=== PATIENT | male | born 1990 | race Caucasian/White ===

== ENCOUNTER → 2017-02-10 | Outpatient (REF) ==
[~2017-02-10] MED LIST: CEPHALEXIN500 M1 PO; FLAGYL500 MG PO; NAPROSYN500 MG PO; NO HOME MEDICATIONS; NORCO 325 MG-51 TAB PO; PREDNISONE20 MG PO
[2017-02-10 11:44] LABS: THYROID STIMULATING HORMONE 7.15 uIU/mL (0.465-4.680)
[2017-02-10 12:30] LABS: LITHIUM 0.5 mmol/L (0.6-1.2)
== END ==
LOC: ZLAB.WCH 10:42
PROVIDERS: Psychiatry & Neurology Psychiatry
DX: Z01.89 Encounter for other specified special examinations (principal)

== ENCOUNTER 2018-03-24 20:48 | Emergency (ER) | payer BC ==
[~2018-03-24] VITALS: Ht 180.3 cm; Wt 113.6 kg
[2018-03-24 20:53] VITALS: BP 185/97; PULSE 60; TEMP 97.2
[2018-03-24] MEDS ORDERED: CEPHALEXIN500 M1 PO (21:49)
[2018-03-24] MEDS ORDERED: NORCO 325 MG-51 TAB PO (21:49)
== END 2018-03-24 21:56 | disposition home or self-care (01) ==
LOC: COL.ER 20:48
DX: K04.7 Periapical abscess without sinus (principal); F17.210 Nicotine dependence, cigarettes, uncomplicated; Z98.890 Other specified postprocedural states; Z90.89 Acquired absence of other organs; Z88.0 Allergy status to penicillin

== ENCOUNTER 2019-11-08 01:21 | Emergency (ER) | payer SELFPAY ==
[~2019-11-08] VITALS: Ht 180.3 cm; Wt 100.0 kg
[2019-11-08 01:54] LABS: BASO # 0.1 (0.0-0.2); BASO % 0.6 % (0.0-2.0); EOS # 0.2 (0.0-0.7); EOS % 2.6 % (0-4.0); GRAN # 5.2 (1.4-6.5); GRAN % 58.7 % (42.2-75.2); HEMATOCRIT 45.5 % (42.0-52.0); HEMOGLOBIN 15.7 g/dl (13.5-18.0); LYMPH # 2.6 (1.2-3.4); LYMPH % 29.6 % (20.0-51.0); MEAN CELL VOLUME 93 fl (80.0-100.0); MEAN CORPUSCULAR HEMOGLOBIN 32 pg (27.0-31.0); MEAN CORPUSCULAR HGB CONC 35 g/dl (33.0-37.0); MEAN PLATELET VOLUME 10.3 fl (7.4-10.4); MONO # 0.7 (0.1-0.6); MONO % 8.2 % (1.7-9.3); PLATELET COUNT 258 K/mm3 (130-400); RED BLOOD COUNT 4.92 M/mm3 (4.20-5.60); REDCELL DISTRIBUTION WIDTH-CV 13.2 % (11.5-14.5)
[2019-11-08 02:00] LABS: ALANINE AMINOTRANSFERASE 9 U/L (21-72); ALBUMIN 4.4 gm/dL (3.5-5.0); ALKALINE PHOSPHATASE 57 U/L (50-136); ANION GAP 9 mmol/L (7-16); AST,SGOT 19 U/L (15-37); BILIRUBIN,TOTAL 0.5 mg/dL (0.0-1.0); BLOOD UREA NITROGEN 14 mg/dL (9-20); C-REACTIVE PROTEIN < 0.5 mg/dL (0.0-0.9); CALCIUM 9.5 mg/dL (8.4-10.2); CARBON DIOXIDE 24 mmol/L (22-30); CHLORIDE 107 mmol/L (98-107); CREATININE, serum 0.88 (0.66-1.25); GLUCOSE 97 mg/dL (74-106); LIPASE 105 U/L (23-300); POTASSIUM 4.1 mmol/L (3.4-5.0); SODIUM 140 mmol/L (137-145); TOTAL PROTEIN 7.7 gm/dL (6.4-8.2)
[2019-11-08 02:53] LABS: COLLECTION METHOD CLEAN CATCH
[2019-11-08 02:58] LABS: MUCOUS Present /lpf; PH 5 (5-8); SQUAMOUS EPITHELIAL 0-2 /hpf; URINE APPEARANCE Clear; URINE BACTERIA None Seen /hpf; URINE BILIRUBIN Negative (NEGATIVE); URINE BLOOD Negative (NEGATIVE); URINE COLOR Yellow; URINE GLUCOSE Negative (NEGATIVE); URINE KETONE Negative (NEGATIVE); URINE LEUKOCYTE ESTERASE Negative (NEGATIVE); URINE NITRATE Negative (NEGATIVE); URINE PROTEIN(semi-quant) Negative (NEGATIVE); URINE RBC 0-2 /hpf
[2019-11-08] MEDS ORDERED: PRILOTC PO (04:03)
[2019-11-08 04:21] VITALS: BP 122/68; PULSE 76; TEMP 97.6
== END 2019-11-08 04:21 | disposition home or self-care (01) ==
LOC: COL.ER 01:21
PROVIDERS: Emergency Medicine
DX: R10.9 Unspecified abdominal pain (principal); F32.9 Major depressive disorder, single episode, unspecified; F17.210 Nicotine dependence, cigarettes, uncomplicated; Z88.0 Allergy status to penicillin; Z98.890 Other specified postprocedural states
CPT/HCPCS: J1885; J7030; Q9967

== ENCOUNTER 2020-01-08 16:47 | Emergency (ER) | payer SELFPAY ==
[~2020-01-08] VITALS: Ht 180.3 cm; Wt 90.9 kg
[~2020-01-08 16:47] MED LIST changes: +PRILOTC PO
[2020-01-08 17:53] LABS: BASO % 0.6 % (0.0-2.0); EOS # 0.1 (0.0-0.7); EOS % 1.5 % (0-4.0); GRAN # 2.7 (1.4-6.5); GRAN % 51.3 % (42.2-75.2); HEMATOCRIT 42.7 % (42.0-52.0); LYMPH # 1.5 (1.2-3.4); LYMPH % 28.4 % (20.0-51.0); MEAN CELL VOLUME 91 fl (80.0-100.0); MEAN CORPUSCULAR HEMOGLOBIN 32 pg (27.0-31.0); MEAN CORPUSCULAR HGB CONC 35 g/dl (33.0-37.0); MEAN PLATELET VOLUME 10.9 fl (7.4-10.4); MONO # 0.9 (0.1-0.6); PLATELET COUNT 194 K/mm3 (130-400); RED BLOOD COUNT 4.71 M/mm3 (4.20-5.60); REDCELL DISTRIBUTION WIDTH-CV 12.8 % (11.5-14.5)
[2020-01-08] MEDS ORDERED: PHENERGAN 25 TA25 MG PO (18:03)
[2020-01-08 18:09] LABS: ALBUMIN 4.1 gm/dL (3.5-5.0); BILIRUBIN,TOTAL 0.5 mg/dL (0.0-1.0); CALCIUM 9.1 mg/dL (8.4-10.2); CREATININE, serum 0.89 (0.66-1.25); POTASSIUM 3.9 mmol/L (3.4-5.0); TOTAL PROTEIN 7.3 gm/dL (6.4-8.2)
[2020-01-08 18:56] VITALS: BP 132/72; PULSE 56; TEMP 98
== END 2020-01-08 18:55 | disposition home or self-care (01) ==
LOC: COL.ER 16:47
PROVIDERS: Emergency Medicine
DX: F07.81 Postconcussional syndrome (principal); W01.0XXA Fall on same level from slipping, tripping and stumbling without subsequent striking against object, initial encounter; Y92.810 Car as the place of occurrence of the external cause
CPT/HCPCS: J1885; J2550; J7030

== ENCOUNTER 2020-10-23 19:04 | Emergency (ER) | payer SELFPAY ==
[~2020-10-23] VITALS: Ht 180.3 cm; Wt 81.8 kg
[~2020-10-23 19:04] MED LIST changes: +PHENERGAN 25 TA25 MG PO
[2020-10-23 19:24] VITALS: TEMP 98.2
[2020-10-24 00:45] VITALS: BP 140/86; PULSE 76
== END 2020-10-24 00:45 | disposition home or self-care (01) ==
LOC: COL.ER 19:04
DX: S03.03XA Dislocation of jaw, bilateral, initial encounter (principal); F17.210 Nicotine dependence, cigarettes, uncomplicated; Z88.0 Allergy status to penicillin; X58.XXXA Exposure to other specified factors, initial encounter
CPT/HCPCS: J1885; J2060; J2270

== ENCOUNTER 2021-02-08 09:49 | Emergency (ER) | payer OTHER ==
[~2021-02-08] VITALS: Ht 180.3 cm; Wt 75.0 kg
[2021-02-08 10:39] LABS: BASO # 0.1 (0.0-0.2); BASO % 0.8 % (0.0-2.0); EOS # 0.6 (0.0-0.7); EOS % 7.4 % (0-4.0); GRAN # 4.5 (1.4-6.5); GRAN % 56.6 % (42.2-75.2); HEMATOCRIT 42.6 % (42.0-52.0); LYMPH # 2.1 (1.2-3.4); MEAN CELL VOLUME 97 fl (80.0-100.0); MEAN CORPUSCULAR HEMOGLOBIN 32 pg (27.0-31.0); MEAN CORPUSCULAR HGB CONC 33 g/dl (33.0-37.0); MEAN PLATELET VOLUME 9.7 fl (7.4-10.4); MONO # 0.7 (0.1-0.6); MONO % 8.6 % (1.7-9.3); PLATELET COUNT 275 K/mm3 (130-400); RED BLOOD COUNT 4.41 M/mm3 (4.20-5.60)
[2021-02-08 10:51] LABS: ALANINE AMINOTRANSFERASE 24 U/L (4-49); ALBUMIN 3.9 gm/dL (3.5-5.0); ALKALINE PHOSPHATASE 63 U/L (50-136); ANION GAP 6 mmol/L (7-16); AST,SGOT 31 U/L (15-37); BILIRUBIN,TOTAL 0.1 mg/dL (0.0-1.0); BLOOD UREA NITROGEN 22 mg/dL (9-20); CARBON DIOXIDE 27 mmol/L (22-30); CHLORIDE 103 mmol/L (98-107); CREATININE, serum 0.85 (0.66-1.25); GLUCOSE 96 mg/dL (74-106); POTASSIUM 4.8 mmol/L (3.4-5.0); SODIUM 137 mmol/L (137-145); TOTAL PROTEIN 7.6 gm/dL (6.4-8.2)
[2021-02-08 10:52] LABS: ACETAMINOPHEN < 10 ug/mL (10-30); ALCOHOL(ethanol),MEDICAL < 10 mg/dL; SALICYLATE < 1.0 mg/dL
[2021-02-08 11:55] LABS: COLLECTION METHOD CLEAN CATCH
[2021-02-08 12:02] LABS: PH 6 (5-8); SQUAMOUS EPITHELIAL None Seen /hpf; URINE APPEARANCE Hazy; URINE BACTERIA None Seen /hpf; URINE BILIRUBIN Negative (NEGATIVE); URINE BLOOD Negative (NEGATIVE); URINE COLOR Straw; URINE GLUCOSE Negative (NEGATIVE); URINE KETONE Negative (NEGATIVE); URINE LEUKOCYTE ESTERASE 1+ (NEGATIVE); URINE NITRATE Negative (NEGATIVE); URINE PROTEIN(semi-quant) Negative (NEGATIVE); URINE RBC 0-2 /hpf; URINE UROBILINOGEN Negative (NEGATIVE)
[2021-02-08 12:16] LABS: TRICYCLIC ANTIDEPRESS URINE NEGATIVE
[2021-02-12 09:59] VITALS: TEMP 97.6
[2021-02-12 16:22] VITALS: BP 150/78; PULSE 87
== END 2021-02-12 16:24 ==
LOC: COL.ER 09:49
PROVIDERS: Physician Assistant
DX: S60.512A Abrasion of left hand, initial encounter (principal); R45.851 Suicidal ideations; K03.81 Cracked tooth; F17.210 Nicotine dependence, cigarettes, uncomplicated; Z20.822 Contact with and (suspected) exposure to COVID-19; Z88.0 Allergy status to penicillin; X83.8XXA Intentional self-harm by other specified means, initial encounter; Y92.59 Other trade areas as the place of occurrence of the external cause
CPT/HCPCS: G0463; J1200; J1630; J2060; J2250

== ENCOUNTER 2021-03-23 16:06 | Emergency (ER) | payer MEDICAID ==
[~2021-03-23] VITALS: Ht 180.3 cm; Wt 88.6 kg
[2021-03-23] MEDS ORDERED: SEROQUEL 200MG200 MG PO (16:19)
[2021-03-23 16:57] LABS: BASO # 0.1 (0.0-0.2); BASO % 0.9 % (0.0-2.0); EOS # 0.5 (0.0-0.7); GRAN # 3.2 (1.4-6.5); GRAN % 47.2 % (42.2-75.2); HEMATOCRIT 37.9 % (42.0-52.0); HEMOGLOBIN 12.7 g/dl (13.5-18.0); LYMPH # 2.3 (1.2-3.4); LYMPH % 33.9 % (20.0-51.0); MEAN CELL VOLUME 94 fl (80.0-100.0); MEAN CORPUSCULAR HEMOGLOBIN 31 pg (27.0-31.0); MEAN CORPUSCULAR HGB CONC 34 g/dl (33.0-37.0); MEAN PLATELET VOLUME 9.6 fl (7.4-10.4); MONO # 0.7 (0.1-0.6); MONO % 9.9 % (1.7-9.3); PLATELET COUNT 234 K/mm3 (130-400); RED BLOOD COUNT 4.04 M/mm3 (4.20-5.60); REDCELL DISTRIBUTION WIDTH-CV 14.6 % (11.5-14.5)
[2021-03-23 17:06] LABS: ALBUMIN 3.8 gm/dL (3.5-5.0); BILIRUBIN,TOTAL 0.2 mg/dL (0.0-1.0); CREATININE, serum 0.8 (0.66-1.25); TOTAL PROTEIN 7.3 gm/dL (6.4-8.2)
[2021-03-23 18:52] LABS: COLLECTION METHOD CLEAN CATCH
[2021-03-23 19:13] LABS: MUCOUS Present /lpf; PH 5 (5-8); SQUAMOUS EPITHELIAL 0-2 /hpf; URINE APPEARANCE Clear; URINE BACTERIA None Seen /hpf; URINE BILIRUBIN Negative (NEGATIVE); URINE BLOOD Negative (NEGATIVE); URINE COLOR Yellow; URINE GLUCOSE Negative (NEGATIVE); URINE KETONE Negative (NEGATIVE); URINE LEUKOCYTE ESTERASE Trace (NEGATIVE); URINE NITRATE Negative (NEGATIVE); URINE PROTEIN(semi-quant) Negative (NEGATIVE); URINE RBC 0-2 /hpf; URINE UROBILINOGEN Negative (NEGATIVE)
[2021-03-23] MEDS ORDERED: BACTRIM DS 8001 TAB PO (21:09)
[2021-03-23 21:19] VITALS: BP 123/66; PULSE 89; TEMP 98.3
== END 2021-03-23 21:19 | disposition home or self-care (01) ==
LOC: COL.ER 16:06
PROVIDERS: Emergency Medicine
DX: T67.4XXA Heat exhaustion due to salt depletion, initial encounter (principal); Z88.0 Allergy status to penicillin; X30.XXXA Exposure to excessive natural heat, initial encounter
CPT/HCPCS: J7030

== ENCOUNTER 2021-04-06 21:07 | Emergency (ER) | payer MEDICAID ==
[~2021-04-06] VITALS: Ht 180.3 cm; Wt 95.5 kg
[~2021-04-06 21:07] MED LIST changes: +BACTRIM DS 8001 TAB PO; +SEROQUEL 200MG200 MG PO
[2021-04-06] MEDS ORDERED: NORCO 325 MG-51 TAB PO (22:12)
[2021-04-06 22:39] VITALS: BP 127/84; PULSE 83; TEMP 98.7
== END 2021-04-06 21:13 | disposition home or self-care (01) ==
LOC: COL.ER 21:07
DX: S83.005A Unspecified dislocation of left patella, initial encounter (principal); Z88.0 Allergy status to penicillin; X58.XXXA Exposure to other specified factors, initial encounter; Y93.72 Activity, wrestling
CPT/HCPCS: J2060; J3010

== ENCOUNTER 2021-05-07 10:30 | Outpatient (RCR) | payer MEDICAID | END 2021-05-08 10:43 | disposition home or self-care (01) | LOC: MKS.ESL.PT 10:30 | DX: S83.005A Unspecified dislocation of left patella, initial encounter (principal) ==

== ENCOUNTER 2021-07-22 17:32 | Emergency (ER) | payer MEDICAID ==
[~2021-07-22] VITALS: Ht 180.3 cm; Wt 104.5 kg
[2021-07-22 18:06] VITALS: TEMP 98.3
[2021-07-22] MEDS ORDERED: CEPHALEXIN500 M1 PO (20:08)
[2021-07-22] MEDS ORDERED: ULTRAM 50MG TAB50 MG PO (20:08)
[2021-07-22 20:35] VITALS: BP 146/90; PULSE 75
== END 2021-07-22 20:35 | disposition home or self-care (01) ==
LOC: COL.ER 17:32
DX: K02.9 Dental caries, unspecified (principal); F31.9 Bipolar disorder, unspecified; Z88.0 Allergy status to penicillin; Z79.899 Other long term (current) drug therapy

== ENCOUNTER 2021-07-31 10:30 | Outpatient (RCR) | payer MEDICAID ==
[~2021-07-31 10:30] MED LIST changes: +ULTRAM 50MG TAB50 MG PO
== END 2021-08-13 ==
LOC: MKS.ESL.PT
DX: Z98.890 Other specified postprocedural states (principal)

== ENCOUNTER 2022-02-03 09:11 | Emergency (ER) | payer SELFPAY ==
[~2022-02-03] VITALS: Ht 180.3 cm; Wt 100.0 kg
[2022-02-03 09:26] VITALS: BP 136/82; TEMP 98.3
[2022-02-03] MEDS ORDERED: LITHIUM 30300 MG/CAP PO (09:29)
[2022-02-03] MEDS ORDERED: LATUDA40 MG PO (09:29)
[2022-02-03 11:10] VITALS: PULSE 71
== END 2022-02-03 11:10 | disposition home or self-care (01) ==
LOC: COL.ER 09:11
DX: S29.011A Strain of muscle and tendon of front wall of thorax, initial encounter (principal); F17.200 Nicotine dependence, unspecified, uncomplicated; X58.XXXA Exposure to other specified factors, initial encounter

== ENCOUNTER 2022-04-23 03:34 | Inpatient (IN) | payer SELFPAY ==
[~2022-04-23] VITALS: Ht 180.3 cm; Wt 81.8 kg
[~2022-04-23 03:34] MED LIST changes: +LATUDA40 MG PO; +LITHIUM 30300 MG/CAP PO
[2022-04-23 04:27] LABS: BASO # 0.1 K/mm3 (0.0-0.2); BASO % 0.3 % (0.0-2.0); EOS # 0.1 K/mm3 (0.0-0.7); EOS % 0.8 % (0.0-4.0); GRAN # 14.8 K/mm3 (1.4-6.5); GRAN % 83.5 % (42.2-75.2); HEMATOCRIT 40.5 % (42.0-52.0); HEMOGLOBIN 13.6 g/dl (13.5-18.0); LYMPH # 1.4 K/mm3 (1.2-3.4); LYMPH % 8.1 % (20.0-51.0); MEAN CELL VOLUME 97 fl (80.0-100.0); MEAN CORPUSCULAR HEMOGLOBIN 33 pg (27-31); MEAN CORPUSCULAR HGB CONC 34 g/dl (33.0-37.0); MEAN PLATELET VOLUME 10.8 fl (7.4-10.4); MONO # 1.2 K/mm3 (0.1-0.6); MONO % 6.8 % (1.7-9.3); PLATELET COUNT 230 K/mm3 (130-400); RED BLOOD COUNT 4.19 M/mm3 (4.20-5.60); REDCELL DISTRIBUTION WIDTH-CV 13.5 % (11.5-14.5)
[2022-04-23 04:47] LABS: ALBUMIN 3.5 gm/dL (3.5-5.0); BILIRUBIN,TOTAL 0.6 mg/dL (0.2-1.2); C-REACTIVE PROTEIN 6.63 mg/dL (0.00-0.50); CREATININE, serum 0.88 mg/dL (0.72-1.25); POTASSIUM 4.1 mmol/L (3.5-4.5); TOTAL PROTEIN 7.2 gm/dL (6.2-8.1)
[2022-04-23 05:09] LABS: COLLECTION METHOD CLEAN CATCH
[2022-04-23 05:17] LABS: PH 7 (5-8); SQUAMOUS EPITHELIAL 0-2 /hpf (0-10); URINE APPEARANCE Clear (CLEAR/HAZY); URINE BACTERIA None Seen /hpf (NONE SEEN); URINE BILIRUBIN Negative (NEGATIVE); URINE BLOOD 1+ (NEGATIVE); URINE COLOR Straw (YELLOW); URINE GLUCOSE Negative (NEGATIVE); URINE KETONE Negative (NEGATIVE); URINE LEUKOCYTE ESTERASE Negative (NEGATIVE); URINE NITRATE Negative (NEGATIVE); URINE PROTEIN(semi-quant) Negative (NEGATIVE); URINE RBC 0-2 /hpf (0-2); URINE UROBILINOGEN Negative (NEGATIVE)
--- NOTE | 2022-04-23 11:22 | NUR ---
Fang: No mu-ism preference Situation: Car Repossessor stopped by room on rounds Background: PT seems content Assessment: PT was pretty quiet but appreciated the visit Recommendation: Car Repossessor will follow up as needed
[2022-04-23 12:01] VITALS: BP 134/72; PULSE 93; TEMP 99.9
--- NOTE | 2022-04-23 14:43 | NUR ---
Transportation Aide met with patient and patient's father, Ken (ph#[phone]) to discuss discharge planning. Patient lives alone in [place] and does not have a current primary care physician. SW discussed primary care services from [facility] and patient was agreeble to have appointment made at time of discharge. Patient's preferred pharmacy is [facility] on [address] as he advised he receives [facility] and they can assist with cost of medications if the prescriptions are sent to [facility]. Patient states he has not seen his VR Counselor in a while because his job at [employer] has been going well. Patient reported that he is established with [facility] services for therapy and medication management. Patient advised his next therapy appointment is 04/29/22. Patient uses a cane for ambulation and is independent with ADLS. Patient does not have Advance Directives. Patient is not and has one child, Lisa, who is 11 years old and lives in [place] with her mother. Patient's legal next of kin are his parents, Ken and Lizzeth. Discharge Plan: Home, will need appointment at [facility] at time of discharge
[2022-04-23 15:13] VITALS: BP 118/58; PULSE 83; TEMP 98.1
[2022-04-23 19:52] VITALS: BP 124/61; PULSE 93; TEMP 101.1
[2022-04-24] VITALS (7 sets, daily range): BP systolic 111–158; BP diastolic 55–83; PULSE 68–92; TEMP 98.3–98.9
[2022-04-24 06:10] LABS: BASO # 0.1 K/mm3 (0.0-0.2); BASO % 0.4 % (0.0-2.0); EOS # 0.2 K/mm3 (0.0-0.7); EOS % 1.3 % (0.0-4.0); GRAN # 13.2 K/mm3 (1.4-6.5); GRAN % 83.5 % (42.2-75.2); HEMATOCRIT 38.9 % (42.0-52.0); HEMOGLOBIN 13.1 g/dl (13.5-18.0); LYMPH # 1.1 K/mm3 (1.2-3.4); MEAN CELL VOLUME 96 fl (80.0-100.0); MEAN CORPUSCULAR HEMOGLOBIN 32 pg (27-31); MEAN CORPUSCULAR HGB CONC 34 g/dl (33.0-37.0); MEAN PLATELET VOLUME 10.7 fl (7.4-10.4); MONO # 1.2 K/mm3 (0.1-0.6); MONO % 7.5 % (1.7-9.3); PLATELET COUNT 204 K/mm3 (130-400); RED BLOOD COUNT 4.05 M/mm3 (4.20-5.60); REDCELL DISTRIBUTION WIDTH-CV 13.7 % (11.5-14.5)
[2022-04-24 06:19] LABS: CALCIUM 8.6 mg/dL (8.4-10.2); CREATININE, serum 0.74 mg/dL (0.72-1.25); MAGNESIUM 2.2 mg/dL (1.6-2.6); POTASSIUM 4.1 mmol/L (3.5-4.5)
--- NOTE | 2022-04-24 06:25 | NUR ---
ASSESSMENT COMPLETE FOR THIS SHIFT. PT MOANING IN BED. PT COMPLAINED OF GROIN PAIN. PT GIVEN MORPHINE AND NORCO FOR PAIN A COUPLE OF TIMES THIS SHIFT. PT FELT PAIN MEDS WERE EFFECTIVE FOR A TIME. PT KEPT TRYING TO PUSH FLUID/PUS FROM THE BASE OF HIS PENIS. PT REMINDED NOT TO DO THAT. AREA CLEANED. FLUFF DRESSING PLACED ON TOP, REMINDED TO PT NOT TO MISS WITH BASE OF PENIS. PT DENIED PALPITATIONS, N,V,D, SOB OR DIZZINESS. PT EXPRESSED NO OTHER NEEDS AT THIS TIME. CALL LIGHT WITHIN REACH.
--- NOTE | 2022-04-24 09:54 | NUR ---
PATIENT ON BED ,ALERT AND ORIENT, STATES THAT HE BEEN UP ALL THE NIGHT, PAIN AT 4/10, DOESNT NEEDS PAIN MEDS AT THE MOMENT
--- NOTE | 2022-04-24 10:31 | NUR ---
Initial visit; Patient states he is doing well. Field Radio Technician offered God's blessings and will follow up if patient is here tomorrow.
--- NOTE | 2022-04-24 18:52 | NUR ---
PATIENT ALERT AND ORIENTED X4,VSS, RAISED COMPLAINTS OF PAIN AT THE LEFT GROIN THROUGHOUT THE PT, PT IS ON PRN NARCO AND IV MORPHINE, PAIN RANGER FROM 4/10 T0 7/10,PAIN WORSENS WITH MOVEMENTS, URINAL AT THE BED SIDE HAS IV ANTIBIOTICS
[2022-04-25 03:41] VITALS: BP 125/60; PULSE 72; TEMP 98
--- NOTE | 2022-04-25 04:34 | NUR ---
ASSESSMENT COMPLETE FOR THIS SHIFT. PT RESTING IN BED WATCHING VIDEOS ON HIS CELLPHONE. PT REQUESTED A SHOWER. AFTER PT'S SHOWER, CIGARETTE SMOKE COULD BE SMELLED. PT ASKED IF HE WAS SMOKING IN THE SHOWER. PT DENIED. PT REMINDED ABOUT THE HOSPITAL'S NO SMOKING POLICY. PT STATED HIS NICOTINE PATCH FELL OFF IN THE SHOWER. NICOTINE PATCH REPLACED WITH A NEW ONE. PT COMPLAINED OF GROIN PAIN. PT GIVEN NORCO A COUPLE OF TIMES TONIGHT. THE SECOND TIME PT ASKED FOR PAIN MEDICATION, PT HAD TO WAIT ABOUT 10 TO 15 MINUTES, UNTIL THE NEXT TIME HE COULD HAVE NORCO. PT WANTED MORPHINE TO TIDE HIM OVER UNTIL HE COULD GET NORCO. I EXPLAINE TO PT, THAT THE DOCTER DIDN'T WANT HIM TAKING MORPHINE, JUST THE NORCO. PT WAS UPSET. PT STATED, "THE DOCTOR SAID HE WAS GOING TO TAKE ME OFF THE MORPHINE, BUT MAKE MY PAIN MED STRONGER. HE DIDN'T DO EITHER!" I EXPLAINED TO PT THAT THE DOCTOR DID BOTH. HIS NORCO DOSE DOUBLE AND HE HASN'T HAD ANY MORPHINE TONIGHT. PT DENIED PALPITATIONS, N,V,D, SOB OR DIZZINESS. PT EXPRESSED NO OTHER NEEDS AT THIS TIME. CALL LIGHT WITHIN REACH.
[2022-04-25 06:32] LABS: BASO # 0.1 K/mm3 (0.0-0.2); BASO % 0.5 % (0.0-2.0); EOS # 0.4 K/mm3 (0.0-0.7); EOS % 2.8 % (0.0-4.0); GRAN # 9.9 K/mm3 (1.4-6.5); GRAN % 76.3 % (42.2-75.2); HEMATOCRIT 39.6 % (42.0-52.0); HEMOGLOBIN 13.2 g/dl (13.5-18.0); LYMPH # 1.7 K/mm3 (1.2-3.4); LYMPH % 12.8 % (20.0-51.0); MEAN CELL VOLUME 95 fl (80.0-100.0); MEAN CORPUSCULAR HEMOGLOBIN 32 pg (27-31); MEAN CORPUSCULAR HGB CONC 33 g/dl (33.0-37.0); MEAN PLATELET VOLUME 10.6 fl (7.4-10.4); MONO # 0.9 K/mm3 (0.1-0.6); MONO % 7.2 % (1.7-9.3); PLATELET COUNT 244 K/mm3 (130-400); RED BLOOD COUNT 4.16 M/mm3 (4.20-5.60); REDCELL DISTRIBUTION WIDTH-CV 13.7 % (11.5-14.5)
[2022-04-25 06:54] LABS: CALCIUM 9.1 mg/dL (8.4-10.2); CREATININE, serum 0.82 mg/dL (0.72-1.25); MAGNESIUM 2.4 mg/dL (1.6-2.6); POTASSIUM 4.5 mmol/L (3.5-4.5)
[2022-04-25 07:19] VITALS: BP 148/75; PULSE 66; TEMP 97.9
--- NOTE | 2022-04-25 08:30 | NUR ---
PT LAYING SUPINE IN BED ON ROOM AIR. PT STATES THAT HE IS HAVING A LOT OF PAIN IN GROIN. RATES IT A 8 OUT OF 10. PRN MEDICAION WAS GIVEN. PT STATES NO OTHER NEEDS AT THIS TIME. LEFT SIDE OF GROIN IS RED AND A LITTLE SWOLLEN. CALL LIGHT IS IN REACH.
--- NOTE | 2022-04-25 11:07 | NUR ---
Bottle Washer contacted [facility] and made follow up appointment for 05/08/22 at 1615. SW provided appointment to loading unit tool setter who included appointment in patient's discharge instructions. SW also let patient know appointment was made. SW attended clinical rounds with the team and patient is not ready for discharge today.
[2022-04-25 11:12] VITALS: BP 153/74; PULSE 62; TEMP 98.2
[2022-04-25 16:05] VITALS: BP 130/52; PULSE 70; TEMP 98.1
--- NOTE | 2022-04-25 18:33 | NUR ---
PT LAYING SUPINE IN BED ON ROOM AIR. PT STATES THAT HIS PAIN IS A 8 OUT OF 10. PRN PAIN MEDICATIONS WERE GIVEN. PT STATES NO OTHER NEEDS OR CONCERNS AT THIS TIME. CALL LIGHT IS WITHIN REACH.
[2022-04-25 20:00] VITALS: BP 141/72; PULSE 67; TEMP 98.4
[2022-04-26] VITALS (14 sets, daily range): BP systolic 105–144; BP diastolic 55–89; PULSE 56–73; TEMP 97.8–98.4
--- NOTE | 2022-04-26 01:29 | NUR ---
ASSESSMENT COMPLETE FOR THIS SHIFT. PT IN BED WATCHING A VIDEO ON HIS CELLPHONE. PT COMPLAINED OF GROIN PAIN. PT GIVEN NORCO FOR PAIN. PT FOUND SOME RELIEF WITH THE NORCO. PT DENIED CHEST PAIN, PALPITATIONS, SOB, N,V,D, OR DIZZINESS. AROUND MIDNIGHT PT DECIDED TO WALK OFF THE UNIT. I ASKED PT TO REMAIN ON UNIT. PT ASKED WHY. I EXPLAINED WE CAN'T MONITOR HIM OFF THE UNIT. PT STATED I'M FINE AND PROCEEDED TO WALK OFF THE UNIT. LICENSED MASSAGE PRACTITIONER CALLED. IHLEN STATED SHE WOULD CALL SECURITY. PT BACK ON UNIT SHORTLY AFTER CALL. PT EXPRESSED NO OTHER NEEDS AT THIS TIME. CALL LIGHT WITHIN REACH.
--- NOTE | 2022-04-26 06:00 | NUR ---
PT LEFT UNIT AGAIN, TONIGHT, TAKING THE IV POLE AND ABX WITH HIM THIS TIME. WHEN ASKED WHERE HE WAS GOING, PT JUST IGNORE ME AND KEPT WALKING. SOCIAL MEDIA DESIGNER CALLED AGAIN. SHE IN TURN, CALL SECURITY. PT AT SOME POINT RETURNED TO ROOM. AROUND 0600HRS, I WHEN IN TO CHECK ON PT. HE HAD HE BACK TO THE DOOR AND LOOKED TO ME TO BE EXPRESSING FLUID FROM HIS GROIN AGAIN. PT ALSO HAD A PILE OF BLOODY TISSUES ON HIS BEDSIDE TABLE. I REMINDED PT NOT TO DO THAT. PT STATED, HE WASN'T PUSHING ON IT, JUST MOVING IT AROUND AND ALL OF THAT WAS COMING OUT. CALL LIGHT WITHIN REACH.
[2022-04-26 07:23] LABS: BASO # 0.1 K/mm3 (0.0-0.2); BASO % 0.8 % (0.0-2.0); EOS # 0.4 K/mm3 (0.0-0.7); EOS % 4.7 % (0.0-4.0); GRAN # 6.4 K/mm3 (1.4-6.5); GRAN % 68.5 % (42.2-75.2); HEMATOCRIT 40.3 % (42.0-52.0); HEMOGLOBIN 13.5 g/dl (13.5-18.0); LYMPH # 1.7 K/mm3 (1.2-3.4); LYMPH % 18.7 % (20.0-51.0); MEAN CELL VOLUME 95 fl (80.0-100.0); MEAN CORPUSCULAR HEMOGLOBIN 32 pg (27-31); MEAN CORPUSCULAR HGB CONC 34 g/dl (33.0-37.0); MEAN PLATELET VOLUME 10.9 fl (7.4-10.4); MONO # 0.7 K/mm3 (0.1-0.6); PLATELET COUNT 291 K/mm3 (130-400); RED BLOOD COUNT 4.24 M/mm3 (4.20-5.60); REDCELL DISTRIBUTION WIDTH-CV 13.6 % (11.5-14.5)
[2022-04-26 08:00] LABS: CALCIUM 9.3 mg/dL (8.4-10.2); CREATININE, serum 0.81 mg/dL (0.72-1.25); MAGNESIUM 2.3 mg/dL (1.6-2.6); POTASSIUM 4.3 mmol/L (3.5-4.5)
--- NOTE | 2022-04-26 08:30 | NUR ---
PT LAYING SUPINE IN BED ON ROOM AIR. PT STATES THAT HIS PAIN IA A 8 OUT 10 IN HIS GROIN. PRN PAIN MEDICAITON WAS GIVEN. PT STATES NO OTHER NEEDS/CONCERNS AT THIS TIME. LEFT SIDE OF GROIN IS RED. CALL LIGHT IS WITHIN REACH.
--- NOTE | 2022-04-26 15:20 | NUR ---
PT OFF FLOOR TO OR
--- NOTE | 2022-04-26 18:32 | NUR ---
PT SITTING UP IN BED EATING DINNER. DRESSING TO LEFT GROIN IS DRY AND INTACT. PT STATES NO NEEDS AT THIS TIME. CALL LIGHT IS WITHIN REACH.
[2022-04-27] VITALS (7 sets, daily range): BP systolic 118–156; BP diastolic 53–73; PULSE 58–87; TEMP 98.1–99.5
--- NOTE | 2022-04-27 06:05 | NUR ---
ASSESSMENT COMPLETE FOR THIS SHIFT. PT RESTING IN HIS RECLINER SHELTERING IN THE PRIETO FROM THE STORM. PT COMPLAINED OF GROIN PAIN. PT GIVEN NORCO FOR PAIN. PT FELT NORCO WAS SOMEWHAT EFFECTIVE FOR HIS PAIN. PT DENIED CHEST PAIN, PALPITATIONS, SOB, N,V,D OR DIZZINESS. PT WANTED HIS DRESSING CHANGED. SURGICAL DRESSING LOOKED IF IT HAD BEEN MESSED WITH, LIKE HE HAD BEEN TRYING TO PEEK UNDER THE DRESSING. DRESSING CHANGED. PT REMINDED NOT TO MESS WITH THE DRESSING, THAT COULD BE A SOURCE OF INFECTION. PT CONTINUES TO LEAVE THE UNIT, WHEN ASKED NOT TO. PT EXPRESSED NO OTHER NEEDS AT THIS TIME. CALL LIGHT WITHIN REACH.
--- NOTE | 2022-04-27 08:00 | NUR ---
Patient laying in bed, A&Ox4. VSS. IV CDI, fluids infusing. Reports itching all over body and pain in groin. Pain medication given when requested. Patient independent in the room. Call light within reach. Bed alarm on
--- NOTE | 2022-04-27 16:45 | NUR ---
Dressing changed to periarea. 2 4x4 inserted into abcess and abd pad covering. Patient tolerated well. Sanginous drainage reported on abd pain. Call light within reach
--- NOTE | 2022-04-27 17:35 | NUR ---
Patient had an uneventful day. Spent most of the shift resting in bed. A&Ox4. VSS. IV CDI. Reports pain in groin, pain medication given when requested. Patient independent in the room. Call light within reach
[2022-04-28 04:09] VITALS: BP 125/71; PULSE 67; TEMP 98.3
[2022-04-28 06:29] LABS: BASO # 0.1 K/mm3 (0.0-0.2); BASO % 0.6 % (0.0-2.0); EOS # 0.7 K/mm3 (0.0-0.7); EOS % 5.9 % (0.0-4.0); GRAN # 7.3 K/mm3 (1.4-6.5); GRAN % 66.1 % (42.2-75.2); HEMATOCRIT 38.4 % (42.0-52.0); HEMOGLOBIN 12.4 g/dl (13.5-18.0); LYMPH # 1.8 K/mm3 (1.2-3.4); LYMPH % 16.4 % (20.0-51.0); MEAN CELL VOLUME 98 fl (80.0-100.0); MEAN CORPUSCULAR HEMOGLOBIN 32 pg (27-31); MEAN CORPUSCULAR HGB CONC 32 g/dl (33.0-37.0); MEAN PLATELET VOLUME 10.5 fl (7.4-10.4); MONO # 1.2 K/mm3 (0.1-0.6); MONO % 10.5 % (1.7-9.3); PLATELET COUNT 284 K/mm3 (130-400); RED BLOOD COUNT 3.93 M/mm3 (4.20-5.60); REDCELL DISTRIBUTION WIDTH-CV 13.8 % (11.5-14.5)
[2022-04-28 06:47] LABS: CREATININE, serum 0.9 mg/dL (0.72-1.25); POTASSIUM 4.3 mmol/L (3.5-4.5)
[2022-04-28 07:51] VITALS: BP 139/78; PULSE 71; TEMP 98.6
[2022-04-28] MEDS ORDERED: PERCOCET 325 MG1 TAB PO (09:46)
--- NOTE | 2022-04-28 09:46 | NUR ---
PT RESTING IN BED. MORNING MEDICATIONS GIVEN, PT COMPLAINS OF PAIN TO GROIN, MEDICATION GIVEN PER eMAR. SHIFT ASSESSMENT COMPLETED. DRESSING TO GROIN HAS SOME DRAINAGE, AREA VERY SENSITIVE TO TOUCH. DENIES ANY OTHER NEEDS. UPDATED PT ON POC, PLANS TO D/C TODAY. WILL CONTINUE TO MONITOR.
[2022-04-28] MEDS ORDERED: DOXYCYCLINE 10100 MG PO (09:49)
--- NOTE | 2022-04-28 11:42 | NUR ---
IV D/C. DISCHARGE INSTRUCTIONS GIVEN, ALL QUESTIONS ANSWERED. PT GIVEN WOUND PACKING MATERIALS TO TAKE WITH HIM. PT TRYING TO CONTACT FRIENDS/FAMILY FOR A RIDE. WILL CONTINUE TO MONITOR.
[2022-04-28 12:12] VITALS: BP 137/72; PULSE 73; TEMP 98.3
[2022-04-28] MEDS ORDERED: MOTRIN 600600 MG/TAB PO (15:05)
--- NOTE | 2022-04-28 15:27 | NUR ---
Patient to discharge home today and will be responsible for doing his dressing changes. Education and supplies provided. Patient's father to provide transportation home.
[2022-04-28 15:37] VITALS: BP 148/76; PULSE 69; TEMP 98.4
--- NOTE | 2022-04-28 16:35 | NUR ---
pt escorted down to er with personal belongings. will d/c from system.
== END 2022-04-28 16:36 | disposition home or self-care (01) | DRG 581 ==
LOC: COL.ER 03:34 → MEDICAL 05:15
PROVIDERS: Emergency Medicine; Family Medicine; Physician Assistant; Surgery; ADMIT Student in an Organized Health Care Education/Training Program
PROC: 0Y960ZZ Drainage of Left Inguinal Region, Open Approach (ICD-10-PCS; principal; 2022-04-26 16:30)
DX: L03.314 Cellulitis of groin (principal); L03.315 Cellulitis of perineum; F17.210 Nicotine dependence, cigarettes, uncomplicated; F60.3 Borderline personality disorder; F32.A Depression, unspecified; L02.215 Cutaneous abscess of perineum; L02.214 Cutaneous abscess of groin; F41.9 Anxiety disorder, unspecified; G89.18 Other acute postprocedural pain; Z88.0 Allergy status to penicillin; Z90.89 Acquired absence of other organs; Z72.89 Other problems related to lifestyle
CPT/HCPCS: 99232-AI; 99233-AI; 99239; J1100; J1170; J1885; J2270; J2405; J2543; J2704; J3010; J3370; J7030; J7050; Q9967